=== PATIENT | female | born 1970 | race Asian ===

== ENCOUNTER → 2018-02-19 | Outpatient (CLI) | payer OTHER | LOC: MAMMO 15:20 | PROVIDERS: ATTEND Specialist | DX: Z12.31 Encounter for screening mammogram for malignant neoplasm of breast (principal) | CPT/HCPCS: 77067 ==

== ENCOUNTER → 2018-03-20 | Outpatient (CLI) | payer OTHER ==
--- NOTE | 2018-03-20 16:00 | Diagnostic Imaging Report ---
#[id number] - MGDXLT #UNILATERAL LEFT DIGITAL DIAGNOSTIC MAMMOGRAM WITH SPOT COMPRESSION: 03/20/2018 Comparison is made to exam dated: 02/19/2018 mammogram - [facility] [place]. Current study contains 3 films. The lesion identified on the prior mammogram at the 11 o'clock position persists with focal spot comression. It has a benign appearance but ultrasound will be performed today for further characterization. IMPRESSION: INCOMPLETE: NEEDS ADDITIONAL IMAGING EVALUATION Small nodule in the left breast. Ultrasound will be performed today. Audie Lawrence Jr., D.O. cw/:03/20/2018 14:36:12 Digital Print Operator: Lucinda SOLIS(R)(M), [facility] [place] letter sent: Additional Imaging Needed Mammogram BI-RADS: 0 Indeterminate
--- NOTE | 2018-03-20 16:00 | Diagnostic Imaging Report ---
#[id number] - USBRELIMLT ULTRASOUND OF THE LEFT BREAST : 03/20/2018 Comparison is made to exams dated: 03/20/2018 mammogram and 02/19/2018 mammogram - [facility]. Color flow and real-time ultrasound were performed on the left breast with scanning from 9-12 o'clock. No cystic or solid mass is seen. No definable lymph node is identified. IMPRESSION: PROBABLY BENIGN - FOLLOW-UP RECOMMENDED Since there was a small nodule on the focused mammogram but without corresponding ultrasound abnormaltiy a follow-up mammogram in 6 months is recommended to demonstrate stability. The patient and her daughter were notified of the need for followup. Audie Lawrence Jr., D.O. cw/:03/20/2018 14:40:38 Steam Meter Reader: MARLON PAREDES, [facility] letter sent: Followup Recommended Ultrasound BI-RADS: 3 Probably benign
== END ==
LOC: MAMMO 12:47
PROVIDERS: ATTEND Specialist
DX: N63.20 Unspecified lump in the left breast, unspecified quadrant (principal)

== ENCOUNTER → 2021-03-20 | Outpatient (CLI) | payer OTHER | LOC: MAMMO 08:49 | PROVIDERS: ATTEND Specialist | DX: Z12.31 Encounter for screening mammogram for malignant neoplasm of breast (principal); Z78.0 Asymptomatic menopausal state | CPT/HCPCS: 77067; 77080 ==